=== PATIENT | male | born 1985 | race Caucasian/White ===

== ENCOUNTER → 2021-04-13 | Outpatient (CLI) | payer BC | LOC: COL.RAD 04-03 09:45 | DX: M79.672 Pain in left foot (principal) | CPT/HCPCS: A9503 ==

== ENCOUNTER 2021-08-24 09:58 | Outpatient (RCR) | payer OTHER | END 2021-10-23 | disposition home or self-care (01) | LOC: WSOH | DX: S39.012A Strain of muscle, fascia and tendon of lower back, initial encounter (principal); Y99.0 Civilian activity done for income or pay ==